=== PATIENT | female | born 1980 | race Caucasian/White ===

== ENCOUNTER → 2019-03-19 | Outpatient (CLI) | payer OTHER ==
--- NOTE | 2019-03-19 12:56 | MR ---
EXAMINATION TYPE: MR brain wo con DATE OF EXAM: 03/19/2019 COMPARISON: NONE HISTORY: Headache TECHNIQUE: Multiplanar, multisequence images of the brain and brainstem is performed without intravenous contras t. FINDINGS: There is slight motion artifact somewhat limiting evaluation. Diffusion weighted images demonstrate no evidence of a recent infarct or other diffusion abnormality. There is no extra-axial fluid collection or significant white matter signal abnormality. The ventr icular system and cisternal spaces are normal in size and appearance. The brain volume is age approp riate. Note is made of a partially empty sella turcica. Remaining midline structures demonstrate normal morp hology. The craniocervical junction appears within normal limits. The visualized sinuses are clear an d the globes are intact. Mild leftward nasal septal deviation and mucosal hypertrophy of the right mi ddle and inferior nasal turbinates are incidentally seen. Mesial temporal lobes are unremarkable. IMPRESSION: 1. Incidentally noted partially empty sella turcica however no other findings of increased intracrani al pressure are seen. If there is clinical concern for pseudotumor cerebri in this patient with intra ctable headache lumbar puncture with opening pressure could be performed. 2. No significant white matter change. No acute infarct, midline shift or mass effect.
== END | disposition home or self-care (01) ==
LOC: RADMRIMAIN 11:52
PROVIDERS: ATTEND Family Medicine
DX: R51 Headache (principal)
CPT/HCPCS: 70551

== ENCOUNTER → 2019-05-15 | Outpatient (CLI) | payer OTHER ==
--- NOTE | 2019-05-15 11:25 | MR ---
EXAMINATION TYPE: MR angio head wo con DATE OF EXAM: 05/15/2019 COMPARISON: MRI 03/19/2019 HISTORY: Persistent headaches TECHNIQUE: Utilizing 3-D [id number] intracranial MRA of the [place] of [place] was performed. FINDINGS: The vertebrobasilar and carotid systems are patent. There is no sizable aneurysm or vascular malform ation. Hypoplastic A1 segment of the right anterior cerebral artery. Right vertebral artery dominant . IMPRESSION: 1. No evidence of vascular malformation or sizable aneurysm.
== END | disposition home or self-care (01) ==
LOC: RADMRIMAIN 10:47
PROVIDERS: ATTEND Psychiatry & Neurology Neurology
DX: R51 Headache (principal)
CPT/HCPCS: 70544

== ENCOUNTER 2021-03-20 17:27 | Emergency (ER) | payer BC, OTHER ==
[2021-03-20 17:40] VITALS: BP 176/100; PULSE 87; RESP 18; TEMP 97.9
--- NOTE | 2021-03-20 18:54 | ED ---
ENT HPI - General Chief complaint: Dental/Oral Stated complaint: Tooth pain Time Seen by Provider: 03/20/21 18:21 Source: patient, RN notes reviewed Mode of arrival: ambulatory Limitations: no limitations - History of Present Illness Initial comments: Patient is a 40-year-old female that presents to emergency department at her dentist's recommendation for further evaluation of a right sided lower jaw abscess. Patient notes that she's had this swelling and pain for approximately 3-4 weeks. Dentist noted that the abscess infection did travel to her submandibular region and wanted her to be further evaluated at the ER. Dentist. Note noted that patient is on clindamycin from her primary care in that he gave her a Z-Geo and a 2 g dose of azithromycin in office. Patient noted that her pain is approximately an 8 out of 10 currently while sitting up in bed during exam and interview. Patient had very poor dentition with a small white area just lateral the right side of the lower jaw next of the gums. He denied any other symptoms or complaints at this time. She denied any chest pain first breath headache nausea vomiting diarrhea constipation fever fatigue chills. - Related Data Previous Rx's Medication Instructions Recorded Amoxicillin/Potassium Clav 1 tab PO Q12HR #14 tab 03/20/21 [Augmentin 875-125 Tablet] Allergies Allergy/AdvReac Type Severity Reaction Status Date / Time cephalexin [From Keflex] Allergy Rash/Hives Verified 03/20/21 17:40 latex Allergy Rash/Hives Verified 03/20/21 17:40 Review of Systems ROS Statement: Those systems with pertinent positive or pertinent negative responses have been documented in the HPI. ROS Other: All systems not noted in ROS Statement are negative. Past Medical History Additional Past Medical History / Comment(s): Gallbadder issues, headaches, Past Surgical History: Tonsillectomy, Tubal Ligation, Uterine Ablation Past Psychological History: ADD/ADHD Smoking Status: Former smoker Past Alcohol Use History: Rare Past Drug Use History: Marijuana General Exam Limitations: no limitations General appearance: alert, in no apparent distress Head exam: Present: atraumatic, normocephalic, normal inspection Eye exam: Present: normal appearance, PERRL, EOMI. Absent: scleral icterus, conjunctival injection, periorbital swelling Expanded Ear exam: Present: normal external inspection Mouth exam: Present: tongue normal. Absent: drooling, trismus Teeth exam: Present: other (Small white pustule lateral right side of the gums.). Absent: normal inspection (Poor dentition) Neck exam: Present: normal inspection, tenderness (To the right submandibular region where some swelling is noted.), full ROM. Absent: lymphadenopathy Respiratory exam: Present: normal lung sounds bilaterally. Absent: respiratory distress, wheezes, rales, rhonchi, stridor Cardiovascular Exam: Present: regular rate, normal rhythm, normal heart sounds. Absent: systolic murmur, diastolic murmur, rubs, gallop, clicks GI/Abdominal exam: Present: soft, normal bowel sounds. Absent: distended, tenderness, guarding, rebound, rigid Extremities exam: Present: normal inspection, full ROM, normal capillary refill. Absent: tenderness, pedal edema, joint swelling, calf tenderness Neurological exam: Present: alert, oriented X3, CN II-XII intact Psychiatric exam: Present: normal affect, normal mood Skin exam: Present: warm, dry, intact, normal color. Absent: rash Course Vital Signs 03/20/21 17:36 Temperature 97.9 F Pulse Rate 87 Respiratory 18 Rate Blood Pressure 176/100 O2 Sat by Pulse 98 Oximetry Medical Decision Making - Medical Decision Making 40-year-old female with right-sided dental infections for the past month. CT soft tissue neck, CBC ordered. CT did show significant fluid within the right sided mandible with several infected teeth. Case discussed with Dr. Hay, patient can discharge on antibiotics with a follow-up to oral surgeon in the next day or 2. - Radiology Data Radiology results: report reviewed, image reviewed CT of the soft tissue neck without contrast: There are innumerable cavitary fillings and crowns in the bilateral maxillary and mandibular teeth causing streak artifact making evaluation suboptimal. There is mild to moderate focal subcutaneous edema and soft tissue swelling over the right mandible with asymmetric right-sided curvilinear focal fluid measuring roughly 3.80.9 cm. The right incisor has a lucency surrounding the root of the tooth coronal image 11 along with lucency surrounding the first premolar tooth. And shortened second premolar tooth. There is a lack of molar teeth bilaterally there is some linear cortical breakthrough from the first premolar tooth and adjacent curvili near Disposition Clinical Impression: Dental abscess Disposition: HOME SELF-CARE Condition: Stable Instructions (If sedation given, give patient instructions): Abscess (ED), Dental Abscess (ED) Additional Instructions: Please return to the Emergency Department if symptoms worsen or any other concerns. Follow-up with oral surgeon next 1-2 days. Take antibiotics as prescribed. Tylenol Motrin as needed for pain. Is patient prescribed a controlled substance at d/c from ED?: No Referrals: JANIE KRISHNAMURTHY, [Primary Care Provider] - 1-2 days Brian Suarez DDS [STAFF PHYSICIAN] - 1-2 days Time of Disposition: 20:14
--- NOTE | 2021-03-20 19:30 | CT ---
EXAMINATION TYPE: CT soft tissue neck wo con DATE OF EXAM: 03/20/2021 HISTORY: Right sided mandibular pain x5 days. Potential infection. COMPARISON: NONE CT DLP: 264.1 mGycm. Automated Exposure Control for Dose Reduction was Utilized. TECHNIQUE: CT scan of the neck is performed without contrast, axial images are obtained, coronal and sagittal reformatted images are reviewed. FINDINGS: Lack of IV contrast is noted to lower sensitivity in evaluation for mucosal lesions and sub centimeter lymph nodes Airway: No gross abnormality seen. Parotid/submandibular glands: No gross abnormality seen. Carotid/Vascular Structures: No significant abnormality on noncontrast study. Osseous Structures: The spine is straightened with mild to moderate anterior spurring C4-C5 level . Other: There are prominent but subcentimeter lymph nodes scattered throughout the neck bilaterally. There are innumerable cavitary fillings and crowns in the bilateral maxillary and mandibular teeth ca using streak artifact making evaluation suboptimal. There is eocz-hy-sajykjtz focal subcutaneous ila a and soft tissue swelling over the right mandible with asymmetric right-sided curvilinear focal flui d measuring roughly 3.8 x 0.9 cm axial image 22 for reference.The right incisor has lucency surroundi ng the root of tooth coronal image 11 along with lucency surrounding the first premolar tooth coronal image 13 and shortened second premolar tooth. There is lack of molar teeth bilaterally. There is frances e linear cortical breakthrough from the first premolar tooth into the adjacent curvilinear fluid axia l image 21. IMPRESSION: There are right-sided dental cavities involving mandibular canine and first premolar toot h with periapical abscess into the adjacent deep soft tissue right mandibular level as detailed above .
[2021-03-20] MEDS ORDERED: HYDROmorphone 1 MG/ML 1 ML SYRINGE IVP STA (19:43)
[2021-03-20 20:19] LABS: Basophils # (A) 0.1 k/uL (0-0.2); Basophils % (A) 1 %; Eosinophils # (A) 0.2 k/uL (0-0.7); Eosinophils % (A) 2 %; HCT 33.2 % (34.0-46.0); HGB 11.7 gm/dL (11.4-16.0); Lymphocytes # (A) 2.7 k/uL (1.0-4.8); Lymphocytes % (A) 30 %; MCH 31.8 pg (25.0-35.0); MCHC 35.2 g/dL (31.0-37.0); MCV 90.4 fL (80.0-100.0); Mean Platelet Volume 7.5; Monocytes # (A) 0.5 k/uL (0-1.0); Monocytes % (A) 6 %; Neutrophils # (A) 5.3 k/uL (1.3-7.7); Neutrophils % (A) 60 %; Platelet Count 397 k/uL (150-450); RBC 3.67 m/uL (3.80-5.40); RDW 13.1 % (11.5-15.5); WBC 8.9 k/uL (3.8-10.6)
[2021-03-20] MEDS ORDERED: ACET/COD 300 MG/30 MG STARTER PACK 6 TAB BTL PO STA (20:28)
[2021-03-20] MEDS ORDERED: AMOXIC-POT CLAV 875-125MG 1 EACH TAB PO STA (20:28)
== END 2021-03-20 20:45 | disposition home or self-care (01) ==
LOC: EC 17:27
DX: K04.7 Periapical abscess without sinus (principal); Z91.040 Latex allergy status; Z87.891 Personal history of nicotine dependence; Z88.1 Allergy status to other antibiotic agents
CPT/HCPCS: 99284; 96374; 36415; 85025; 70490; J1170

== ENCOUNTER → 2023-05-21 | Outpatient (CLI) | payer BC ==
[2023-05-21 19:18] LABS: Egg White IgE <0.10 kU/L; Peanut IgE <0.10 kU/L; Shrimp IgE <0.10 kU/L; Soybean IgE <0.10 kU/L; Walnut IgE (Food) <0.10 kU/L
[2023-05-22 11:57] LABS: Crab IgE <0.10 kU/L (<0.10); Crab IgE Class CLASS 0
[2023-05-22 11:58] LABS: Lettuce IgE Class CLASS 0
[2023-05-22 11:59] LABS: Beef IgE <0.10 kU/L (<0.10); Beef IgE Class CLASS 0; Pork IgE Class CLASS 0
[2023-05-22 12:01] LABS: Potato IgE <0.10 kU/L (<0.10); Potato IgE Class CLASS 0; Salmon IgE <0.10 kU/L (<0.10); Salmon IgE Class CLASS 0; Yeast Bakers/Brew IgE <0.10 kU/L (<0.10); Yeast Bakers/Brew IgE Class CLASS 0
[2023-05-22 12:02] LABS: Apple IgE Class CLASS 0; Onion IgE <0.10 kU/L (<0.10); Onion IgE Class CLASS 0
[2023-05-22 12:04] LABS: Celery IgE <0.10 kU/L (<0.10); Celery IgE Class CLASS 0; Chicken IgE Class CLASS 0; Egg Yolk IgE Class CLASS 0; Gluten IgE Class CLASS 0; Lobster IgE <0.10 kU/L (<0.10); Lobster IgE Class CLASS 0; Oat IgE Class CLASS 0
[2023-05-22 12:05] LABS: Avocado Class CLASS 0; Banana IgE Class CLASS 0; Chocolate IgE Class CLASS 0; Hazelnut IgE <0.10 kU/L (<0.10); Hazelnut IgE Class CLASS 0; Kiwi IgE <0.10 kU/L (<0.10); Kiwi IgE Class CLASS 0; Latex IgE Class CLASS 0; Tea IgE <0.10 kU/L (<0.10); Tea IgE Class CLASS 0
== END | disposition home or self-care (01) ==
LOC: LABWHC1 07:51
PROVIDERS: ATTEND Otolaryngology
DX: J30.89 Other allergic rhinitis (principal)
CPT/HCPCS: 36415; 86001; 86003

== ENCOUNTER → 2023-06-04 | Outpatient (CLI) | payer BC ==
[2023-06-05 00:50] LABS: Gliadin AB IgA, Deaminated Negative (Negative); Gliadin AB IgA, Unit <0.5 U/mL; Gliadin AB IgG, Deaminated Negative (Negative); Gliadin AB IgG, Unit <0.4 U/mL
== END | disposition home or self-care (01) ==
LOC: LABWHC1 07:48
PROVIDERS: ATTEND Otolaryngology
DX: R21 Rash and other nonspecific skin eruption (principal)
CPT/HCPCS: 36415; 82785; 83516; 83520; 86618

== ENCOUNTER 2023-09-30 11:55 | Emergency (ER) | payer BC ==
[2023-09-30 12:16] VITALS: TEMP 98.3
[2023-09-30] MEDS ORDERED: METOCLOPRAMIDE 5 MG/ML 2 ML VIAL IVP STA (12:39)
[2023-09-30] MEDS ORDERED: SODIUM CHLORIDE 0.9% 1,000 ML IV STA (12:39)
[2023-09-30] MEDS ORDERED: diphenhydrAMINE 50 MG/ML 1 ML VIAL IVP STA (12:39)
--- NOTE | 2023-09-30 12:44 | ED ---
General Adult HPI - General Chief complaint: Headache Stated complaint: Headache, Nausea Time Seen by Provider: 09/30/23 12:15 Source: patient, EMS, RN notes reviewed Mode of arrival: EMS Limitations: no limitations - History of Present Illness Initial comments: Patient is a pleasant 42-year-old female presenting to the emergency department with concerns with headache. Onset of symptoms was a few hours ago. Headache progressed and worsened. Headache did become severe. Patient does have history of previous headaches. Patient did have some mild photophobia which has resolved. Patient did have some nausea which is also resolved. Patient was gi loy Toradol prior to arrival. Patient feels this helped and discomfort is currently rated 5/10. Discomfort is right side of the head. No weakness or confusion. No fever. Patient also complains of left earache for the past several days. Patient was given antibiotics by her doctor for it secondary to her tympanic membrane appearing melchor. Patient also states she has had some lymph node swelling for the past several weeks. - Related Data Home Medications Medication Instructions Recorded Confirmed Dextroamphetamine/Amphetamine 30 mg PO DAILY 09/30/23 09/30/23 [Adderall Xr 30 mg Capsule] Dextroamphetamine/Amphetamine 10 mg PO PC-LUNCH 09/30/23 09/30/23 [Adderall] Doxycycline [Vibramycin] 100 mg PO BID 09/30/23 09/30/23 Fluconazole 150 mg PO DIRECTED 09/30/23 09/30/23 Levothyroxine Sodium [Synthroid] 50 mcg PO DAILY 09/30/23 09/30/23 Liothyronine Sodium [Cytomel] 5 mcg PO DAILY 09/30/23 09/30/23 Topiramate [Topamax] 100 mg PO BID 09/30/23 09/30/23 Allergies Allergy/AdvReac Type Severity Reaction Status Date / Time bacitracin Allergy Unknown Verified 09/30/23 13:49 cephalexin [From Keflex] Allergy Rash/Hives Verified 09/30/23 13:49 latex Allergy Rash/Hives Verified 09/30/23 13:49 lidocaine Allergy Unknown Verified 09/30/23 13:49 neomycin Allergy Unknown Verified 09/30/23 13:49 [From Neosporin ([id number])] polymyxin B Allergy Unknown Verified 09/30/23 13:49 [From Neosporin ([id number])] Sulfa (Sulfonamide Allergy Unknown Verified 09/30/23 13:49 Antibiotics) Review of Systems ROS Statement: Those systems with pertinent positive or pertinent negative responses have been documented in the HPI. ROS Other: All systems not noted in ROS Statement are negative. Constitutional: Denies: fever Eyes: Denies: eye pain ENT: Reports: as per HPI, ear pain, other (Lymph nodes) Respiratory: Denies: cough, dyspnea Cardiovascular: Denies: chest pain Endocrine: Denies: fatigue Gastrointestinal: Reports: nausea (Resolved). Denies: abdominal pain Neurological: Reports: as per HPI, headache. Denies: weakness, numbness, paresthesias, confusion Past Medical History Additional Past Medical History / Comment(s): Gallbadder issues, headaches, Hashimotos Disease, food allergies, Past Surgical History: Tonsillectomy, Tubal Ligation, Uterine Ablation Past Psychological History: ADD/ADHD Smoking Status: Former smoker Past Alcohol Use History: Rare General Exam Limitations: no limitations General appearance: alert, in no apparent distress Head exam: Present: normocephalic Eye exam: Present: normal appearance, PERRL, EOMI ENT exam: Present: normal oropharynx, TM's normal bilaterally Neck exam: Present: other (Minimal lymph nodes left anterior cervical) Respiratory exam: Present: normal lung sounds bilaterally Cardiovascular Exam: Present: regular rate, normal rhythm GI/Abdominal exam: Present: soft. Absent: tenderness Extremities exam: Present: normal inspection Neurological exam: Present: alert, oriented X3, CN II-XII intact. Absent: motor sensory deficit Expanded Neurological exam: Present: protecting the airway Speech: Present: fluid speech Cranial nerves: EOM's Intact: Normal, Facial Sensation: Normal Sensory exam: Upper Extremity Light Touch: Normal, Lower Extremity Light Touch: Normal Motor strength exam: RUE: 5, LUE: 5, RLE: 5, LLE: 5 Eye Response: (4) open spontaneously Motor Response: (6) obeys commands Verbal Response: (5) oriented Psychiatric exam: Present: normal affect, normal mood Skin exam: Present: normal color Course Vital Signs 09/30/23 12:03 Temperature 98.3 F Pulse Rate 62 Respiratory 18 Rate Blood Pressure 127/80 O2 Sat by Pulse 98 Oximetry Medical Decision Making - Medical Decision Making Was pt. sent in by a medical professional or institution (Dr., PA, FILTER SCREEN CLEANER, urgent care, hospital, or fpc...) When possible be specific @ -No Did you speak to anyone other than the patient for history (EMS, parent, family, police, friend...)? What history was obtained from this source @ -No Did you review nursing and triage notes (agree or disagree)? Why? @ -I reviewed and agree with nursing and triage notes Were old charts reviewed (outside hosp., previous admission, EMS record, old EKG , old radiological studies, urgent care reports/EKG's, fpc records)? Report findings @ -No old charts were reviewed Differential Diagnosis (chest pain, altered mental status, abdominal pain women, abdominal pain men, vaginal bleeding, weakness, fever, dyspnea, syncope, headache, dizziness, GI bleed, back pain, seizure, CVA, palpatations, mental health, musculoskeletal)? @ -Differential Headache: Migraine, tension, cluster, carbon monoxide, central venous thrombosis, pension karma temporal arteritis, acute closure glaucoma, intercranial hemorrhage, mastoiditis, sinusitis, head injury, this is not meant to be an all-inclusive list. EKG interpreted by me (3pts min.). @ -As above X-rays interpreted by me (1pt min.). @ -None done CT interpreted by me (1pt min.). @ -Computed tomography scan of brain without acute abnormality. U/S interpreted by me (1pt. min.). @ -None done What testing was considered but not performed or refused? (CT, X-rays, U/S, labs)? Why? @ -None What meds were considered but not given or refused? Why? @ -None Did you discuss the management of the patient with other professionals (professionals i.e. DENZEL Edward, FILTER SCREEN CLEANER, lab, RT, psych nurse, social security benefits interviewer, billing clerk, teacher, motorcycle police officer, hospice case manager)? Give summary @ -No Was smoking cessation discussed for >3mins.? @ -No Was critical care preformed (if so, how long)? @ -No Were there social determinants of health that impacted care today? How? (Homelessness, low income, unemployed, alcoholism, drug addiction, transportation, low edu. Level, literacy, decrease access to med. care, nursing home, r ehab)? @ -No Was there de-escalation of care discussed even if they declined (Discuss DNR or withdrawal of care, Hospice)? DNR status @ -No What co-morbidities impacted this encounter? (DM, HTN, Smoking, COPD, CAD, Cancer, CVA, ARF, Chemo, Hep., AIDS, mental health diagnosis, sleep apnea, morbid obesity)? @ -None Was patient admitted / discharged? Hospital course, mention meds given and route, prescriptions, significant lab abnormalities, going to OR and other pertinent info. @ -Patient reevaluated and further improved. Discomfort is rated 4/10. Patient does not want any further medication as per history of her headache she does not feel will help her anymore. Patient is comfortable with discharge home. Patient and family updated. Undiagnosed new problem with uncertain prognosis? @ -No Drug Therapy requiring intensive monitoring for toxicity (Heparin, Nitro, Insulin, Cardizem)? @ -No Were any procedures done? @ -No Diagnosis/symptom? @ -Cephalgia Acute, or Chronic, or Acute on Chronic? @ -Acute Uncomplicated (without systemic symptoms) or Complicated (systemic symptoms)? @ -default Side effects of treatment? @ -No Exacerbation, Progression, or Severe Exacerbation? @ -No Poses a threat to life or bodily function? How? (Chest pain, USA, ID, pneumonia, PE, COPD, DKA, ARF, appy, cholecystitis, CVA, Diverticulitis, Homicidal, Suicidal, threat to staff... and all critical care pts) @ -No - Lab Data Result diagrams: 09/30/23 13:22 09/30/23 13:50 Lab Results 09/30/23 09/30/23 Range/Units 13:22 13:50 WBC 5.0 (3.8-10.6) k/uL RBC 3.89 (3.80-5.40) m/uL Hgb 12.2 (11.4-16.0) gm/dL Hct 36.0 (34.0-46.0) % MCV 92.5 (80.0-100.0) fL MCH 31.5 (25.0-35.0) pg MCHC 34.0 (31.0-37.0) g/dL RDW 13.3 (11.5-15.5) % Plt Count 227 (150-450) k/uL MPV 10.6 Neutrophils % 62 % Lymphocytes % 27 % Monocytes % 8 % Eosinophils % 1 % Basophils % 0 % Neutrophils # 3.1 (1.3-7.7) k/uL Lymphocytes # 1.3 (1.0-4.8) k/uL Monocytes # 0.4 (0-1.0) k/uL Eosinophils # 0.1 (0-0.7) k/uL Basophils # 0.0 (0-0.2) k/uL Sodium 140 (137-145) mmol/L Potassium 3.7 (3.5-5.1) mmol/L Chloride 111 H (98-107) mmol/L Carbon Dioxide 20 L (22-30) mmol/L Anion Gap 9 mmol/L BUN 4 L (7-17) mg/dL Creatinine 0.60 (0.52-1.04) mg/dL Est GFR (CKD-EPI)AfAm >90 (>60 ml/min/1.73 sqM) Est GFR (CKD-EPI)NonAf >90 (>60 ml/min/1.73 sqM) Glucose 80 (74-99) mg/dL Calcium 8.6 (8.4-10.2) mg/dL Total Bilirubin 0.6 (0.2-1.3) mg/dL AST 22 (14-36) U/L ALT 19 (4-34) U/L Alkaline Phosphatase 51 (38-126) U/L Total Protein 6.6 (6.3-8.2) g/dL Albumin 3.7 (3.5-5.0) g/dL Disposition Clinical Impression: Headache Disposition: HOME SELF-CARE Condition: Stable Instructions (If sedation given, give patient instructions): Acute Headache (ED) Additional Instructions: Please do follow-up with primary care physician in the next day or 2 for recheck. If ear discomfort continues consider ENT follow-up. Return for incre ased pain, fever, weakness, confusion, worsening or changing symptoms or other concerns.. Is patient prescribed a controlled substance at d/c from ED?: No Referrals: JANIE KRISHNAMURTHY DO [Primary Care Provider] - 1-2 days Time of Disposition: 16:00
[2023-09-30 13:43] LABS: Basophils % (A) 0 %; Eosinophils # (A) 0.1 k/uL (0-0.7); Eosinophils % (A) 1 %; HGB 12.2 gm/dL (11.4-16.0); Lymphocytes # (A) 1.3 k/uL (1.0-4.8); Lymphocytes % (A) 27 %; MCH 31.5 pg (25.0-35.0); MCV 92.5 fL (80.0-100.0); Mean Platelet Volume 10.6; Monocytes # (A) 0.4 k/uL (0-1.0); Monocytes % (A) 8 %; Neutrophils # (A) 3.1 k/uL (1.3-7.7); Neutrophils % (A) 62 %; Platelet Count 227 k/uL (150-450); RBC 3.89 m/uL (3.80-5.40); RDW 13.3 % (11.5-15.5)
[2023-09-30 14:31] LABS: ALT 19 U/L (4-34); AST 22 U/L (14-36); African American GFR (CKD) >90 (>60 ml/min/1.73 sqM); Albumin 3.7 g/dL (3.5-5.0); Alkaline Phosphatase 51 U/L (38-126); Anion Gap 9 mmol/L; Blood Urea Nitrogen 4 mg/dL (7-17); Calcium 8.6 mg/dL (8.4-10.2); Carbon Dioxide 20 mmol/L (22-30); Chloride 111 mmol/L (98-107); Glucose 80 mg/dL (74-99); Non-African American GFR(CKD) >90 (>60 ml/min/1.73 sqM); Potassium 3.7 mmol/L (3.5-5.1); Sodium 140 mmol/L (137-145); Total Bilirubin 0.6 mg/dL (0.2-1.3); Total Protein 6.6 g/dL (6.3-8.2)
--- NOTE | 2023-09-30 15:42 | CT ---
EXAMINATION TYPE: CT brain wo con DATE OF EXAM: 09/30/2023 COMPARISON: None HISTORY: headaches, nausea CT DLP: 1099.6 mGycm. Automated Exposure Control for Dose Reduction was Utilized. TECHNIQUE: CT scan of the head is performed without contrast. FINDINGS: There is no acute intracranial hemorrhage, mass effect, or midline shift identified. The ventricles and sulci are within normal limits in size. The globes are intact and the visualized sin uses are clear. IMPRESSION: No acute intracranial hemorrhage, mass effect, or midline shift is seen.
--- NOTE | 2023-09-30 15:45 | CT ---
CTA head. HISTORY: Headaches. COMPARISON: None TECHNIQUE: CTA of the head was performed according to protocol following uneventful administration no nionic IV contrast. 3-D postprocessing was performed. FINDINGS: There is no sizable sac, vascular malformation or occlusive disease. IMPRESSION: No significant abnormality seen
[2023-09-30 18:02] VITALS: BP 137/74; PULSE 77; RESP 16
== END 2023-09-30 17:35 | disposition home or self-care (01) ==
LOC: EC 11:55
DX: R51.9 Headache, unspecified (principal); Z86.59 Personal history of other mental and behavioral disorders; Z87.891 Personal history of nicotine dependence; Z88.2 Allergy status to sulfonamides; Z88.1 Allergy status to other antibiotic agents; Z91.040 Latex allergy status; Z88.8 Allergy status to other drugs, medicaments and biological substances
CPT/HCPCS: 36415; 80053; 85025; 70496; 70450; 99284; 96374; 96375; J1200; J2765; Q9967

== ENCOUNTER → 2024-06-14 | Outpatient (CLI) | payer BC ==
--- NOTE | 2024-06-14 19:25 | MR ---
EXAMINATION TYPE: MR cervical spine wo con DATE OF EXAM: 06/14/2024 COMPARISON: None HISTORY: Neck pain, headaches, LUE radiculopathy. CONTRAST: Performed utilizing 0 mL intravenous Gadavist gadolinium contrast. TECHNIQUE: Multiplanar multiecho imaging on a 3.0 Georgina magnet is performed through the cervical spin e. FINDINGS: The craniovertebral junction is normal. Vertebral body alignment is normal. C7-T1: No focal disc herniation or significant disc bulge is evident. No spinal canal stenosis or n eural foraminal stenosis is present. C6-7: There is a large left paracentral disc herniation extending towards the left lateral direction. This is displacing the exiting left C6 nerve root. There is likely impingement. Correlate with radic ular symptoms some cord contact and mild cord deformity is present. There may be some mild linear inc reased T2 signal and sagittal T2 sequences posterior to the C6 vertebral level within the spinal cord . Not confirmed on the axial T2 images. C5-6: Mild disc bulge is present with anterior thecal sac contact. No cord contact or spinal canal st enosis present. Neural foramen are patent.. C4-5: No focal disc herniation or significant disc bulge is evident. No spinal canal stenosis or harry ral foraminal stenosis is present. C3-4: No focal disc herniation or significant disc bulge is evident. No spinal canal stenosis or harry ral foraminal stenosis is present. C2-3: No focal disc herniation or significant disc bulge is evident. No spinal canal stenosis or harry ral foraminal stenosis is present. IMPRESSION: 1. Large left paracentral disc herniation C6-7 with cord contact and mild cord deformity. Some signal abnormality in the sagittal plane may be present within the spinal cord posterior to C6. There is di splacement of the exiting nerve root. Correlate with C6 radicular symptoms.
== END | disposition home or self-care (01) ==
LOC: RADMRIMAIN 18:01
PROVIDERS: ATTEND Family Medicine
DX: M50.123 Cervical disc disorder at C6-C7 level with radiculopathy (principal); M79.622 Pain in left upper arm
CPT/HCPCS: 72141